=== PATIENT | male | born 1990 | race Two or more races ===

== ENCOUNTER 2017-03-04 23:33 | Emergency (ER) | payer OTHER ==
[~2017-03-04] VITALS: Ht 172.7 cm; Wt 70.3 kg
[2017-03-05] MEDS ORDERED: ONDANSETRON 4 MG/2 ML VIAL IM ONE
[2017-03-05] MEDS ORDERED: MORPHINE SULFATE 4 MG/1 ML DISP.SYRIN IM ONE
[2017-03-05] MEDS ORDERED: IBUPROFEN 400 MG TABLET PO ONE
[2017-03-05] MEDS ORDERED: HYDROCODONE/APAP 5-325MG TABLET PO ONE
[2017-03-05] MEDS ORDERED: ONDANSETRON 4 MG/2 ML VIAL ONE (00:03)
[2017-03-05] MEDS ORDERED: MORPHINE SULFATE 4 MG/1 ML DISP.SYRIN ONE (00:03)
[2017-03-05] MEDS ORDERED: IBUPROFEN 400 MG TABLET ONE (00:07)
--- NOTE | 2017-03-05 02:13 | NUR ---
Patient discharged to home in stable conditon. Written and verbal after care instructions given. Patient verbalizes understanding of instructions.
== END 2017-03-05 02:14 | disposition home or self-care (01) ==
LOC: ER 23:39
DX: S93.401A Sprain of unspecified ligament of right ankle, initial encounter (principal); X58.XXXA Exposure to other specified factors, initial encounter; Y93.66 Activity, soccer; Y99.8 Other external cause status; Y92.89 Other specified places as the place of occurrence of the external cause
CPT/HCPCS: 73610; 73700; A4663; J2270; J2405